=== PATIENT | male | born 1945 | race Caucasian/White ===

== ENCOUNTER → 2017-03-09 | Outpatient (CLI) | payer MEDICARE, OTHER ==
[~2017-03-09] MED LIST: ALLOPURINOL100 MG PO; BYSTOLIC10 MG PO; BYSTOLIC5 MG PO; CELEXA40 MG PO; COUMADIN ** IA5 MG PO; COUMADIN **IA2.5 MG PO; FLOMAX0.4 MG PO; FUROSEMIDE80 MG PO; K-TAB ER20 MEQ PO; LACTINEX (FLORA1 TAB PO; LANTUS (IN100 UNIT/M SUB-Q; LANTUS SOL100 UNIT/1 SUB-Q; LASIX40 MG PO; LIPITOR40 MG PO; LYRICA 150MG C150 MG PO; METOLAZONE5 MG PO; MIDODRINE HCL10 MG PO; MIRALAX17 GM PO; NORCO 5-325 MG1 TAB PO; NOVOLOG FL100 UNIT/1 SUB-Q; NOVOLOG100 UNIT/M SUB-Q; PROVENTIL OR V6.7 GM INH; ROCALTROL0.25 MCG PO; VITAMIN D-32000 UNI1 PO; ZETIA10 MG PO
== END | disposition disaster alternative care site (69) ==
LOC: GAIR 14:45
DX: A41.9 Sepsis, unspecified organism (principal); E16.2 Hypoglycemia, unspecified; R65.21 Severe sepsis with septic shock; R53.83 Other fatigue; R19.7 Diarrhea, unspecified; R06.02 Shortness of breath; R30.9 Painful micturition, unspecified; Z79.891 Long term (current) use of opiate analgesic; Z79.4 Long term (current) use of insulin; Z88.8 Allergy status to other drugs, medicaments and biological substances; Z79.899 Other long term (current) drug therapy; Z79.82 Long term (current) use of aspirin
CPT/HCPCS: A0422; A0431; A0436; J3010